=== PATIENT | male | born 1965 | race Two or more races ===

== ENCOUNTER 2017-06-14 16:59 | Emergency (ER) | payer MEDICARE, MEDICAID ==
[2017-06-14 17:11] VITALS: BP 139/76; PULSE 71; RESP 18; TEMP 96.8; O2SAT 97
--- NOTE | 2017-06-14 17:40 | ED PDOC ---
HPI: Psych/Substance Abuse Time Seen by Provider: 06/14/17 17:12 Chief Complaint (Nursing): Psychiatric Evaluation Chief Complaint (Provider): [email or web address] Additional Complaint(s): 51yo M in ED walked into ED states that he was upset with homeless person who makes fun of him and other homeless people and said he wanted to take his eyes out, but admits that he doesn't mean that and is not in fact homicidal. Pt states that he also is in need of diabetes medication, but has never been tested for diabetes. Pt denies SI or halluncaiotns. pt is homeless. Past Medical History Reviewed: Historical Data, Nursing Documentation, Vital Signs Vital Signs: Last Vital Signs Temp 96.8 F L 06/14/17 17:05 Pulse 71 06/14/17 17:05 Resp 18 06/14/17 17:05 BP 139/76 06/14/17 17:05 Pulse Ox 97 06/14/17 17:05 - Medical History PMH: No Chronic Diseases - Family History Family History: States: No Known Family Hx - Allergies Allergies/Adverse Reactions: Allergies Allergy/AdvReac Type Severity Reaction Status Date / Time No Known Allergies Allergy Verified 06/14/17 17:05 Review of Systems ROS Statement: Except As Marked, All Systems Reviewed And Found Negative Psych: Negative for: Anxiety, Depression, Psychosis, Suicidal ideation Physical Exam - Reviewed Nursing Documentation Reviewed: Yes Vital Signs Reviewed: Yes - Physical Exam Appears: Positive for: Well, Non-toxic, No Acute Distress Head Exam: Positive for: ATRAUMATIC, NORMAL INSPECTION, NORMOCEPHALIC Skin: Positive for: Normal Color, Warm, DRY Eye Exam: Positive for: EOMI, Normal appearance, PERRL Cardiovascular/Chest: Positive for: Regular Rate, Rhythm Respiratory: Positive for: CNT, Normal Breath Sounds Neurologic/Psych: Positive for: Alert, Oriented, Mood/Affect (normal speech, slighlty anxious) - ECG O2 Sat by Pulse Oximetry: 97 Medical Decision Making Medical Decision Making: pt was evaluated by crisis immediately upon arrival due to initial statement of homicidal ideation, however pt confirmed multiple times that he is NOT homicidal and only wanted to get tested for MD. pt was cleared for d/c by MD Susana stable for d/c. at this time no significant threat to persons or self. pt was escorted by security. pt calm and cooperative. Disposition - Clinical Impression Clinical Impression: Adjustment disorder - Patient ED Disposition Is Patient to be Admitted: No Counseled Patient/Family Regarding: Need For Followup - Disposition Disposition: Routine/Home Disposition Time: 17:53 Condition: STABLE Instructions: How to Check Your Blood Sugar (ED) Forms: [employer] ([place])
== END 2017-06-14 17:26 | disposition home or self-care (01) ==
LOC: H.ER 16:59
DX: F43.20 Adjustment disorder, unspecified (principal)